=== PATIENT | male | born 1995 | race Hispanic/Latino ===

== ENCOUNTER 2021-09-12 21:26 | Emergency (ER) | payer OTHER ==
[~2021-09-12] VITALS: Ht 175.3 cm; Wt 99.8 kg
[2021-09-12 22:43] VITALS: BP 156/74
[2021-09-12] MEDS ORDERED: IBUP-2070 PO (23:41)
== END 2021-09-12 23:53 | disposition home or self-care (01) ==
LOC: EDH 21:26
DX: S60.812A Abrasion of left wrist, initial encounter (principal); M54.2 Cervicalgia; M79.602 Pain in left arm; V49.49XA Driver injured in collision with other motor vehicles in traffic accident, initial encounter; Y93.89 Activity, other specified; Y92.413 State road as the place of occurrence of the external cause; Y99.8 Other external cause status
CPT/HCPCS: 70450; 71045; 72125; 73060; 73070; 73090